=== PATIENT | female | born 1965 | race Hispanic/Latino ===

== ENCOUNTER 2017-02-01 09:01 | Emergency (ER) | payer BC ==
[2017-02-01 09:20] VITALS: BP 159/112
[2017-02-01] MEDS ORDERED: PERCOCET 5/325 PO ONE ×2 (09:48→09:57)
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
[2017-02-01 12:19] LABS: Basophils % (Auto) 0.8 % (0.0-1.8); Eosinophils % (Auto) 0.5 % (0.0-4.3); Hematocrit 41.8 % (30.3-42.9); Hemoglobin 14.1 gm/dl (10.1-14.3); Mean Corpuscular HGB Conc 34 % (30-34); Mean Corpuscular Hemoglobin 30 pg (28-32); Mean Corpuscular Volume 88 fl (79-97); Platelet Count 240 K/mm3 (140-440); Red Blood Count 4.77 M/mm3 (3.65-5.03); Red Cell Distribution Width 13.8 % (13.2-15.2); White Blood Count 4.5 K/mm3 (4.5-11.0)
[2017-02-01 12:36] LABS: Alanine Aminotransferase 25 units/L (7-56); Albumin 4.1 g/dL (3.9-5); Albumin/Globulin Ratio 1.2 %; Alkaline Phosphatase 69 units/L (35-129); Anion Gap 16 mmol/L; BUN/Creatinine Ratio 18.75; Bilirubin,Total 0.5 mg/dL (0.1-1.2); Blood Urea Nitrogen 15 mg/dL (7-17); Calcium 9.4 mg/dL (8.4-10.2); Carbon Dioxide 24 mmol/L (22-30); Chloride 100.5 mmol/L (98-107); Glucose 99 mg/dL (65-100); Potassium 3.7 mmol/L (3.6-5.0); Sodium 137 mmol/L (137-145); Total Protein 7.4 g/dL (6.3-8.2)
[2017-02-01] MEDS ORDERED: NACL ONE (12:38)
[2017-02-01] MEDS ORDERED: BENADRYL IV ONE (13:18)
[2017-02-01] MEDS ORDERED: MORPHINE IV ONE (13:18)
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
== END 2017-02-01 15:05 | disposition home or self-care (01) ==
LOC: ED 09:01
DX: S13.4XXA Sprain of ligaments of cervical spine, initial encounter (principal); Z90.49 Acquired absence of other specified parts of digestive tract; V89.2XXA Person injured in unspecified motor-vehicle accident, traffic, initial encounter; Y93.89 Activity, other specified; Y99.8 Other external cause status; Y92.89 Other specified places as the place of occurrence of the external cause
CPT/HCPCS: 36415; 70450; 71260; 72125; 74177; 80053; 85025; 96374; 96375; 99284; J1200; J2270; Q9967